=== PATIENT | male | born 1990 | race Hispanic/Latino ===

== ENCOUNTER 2017-03-14 17:50 | Emergency (ER) | payer OTHER ==
[~2017-03-14] VITALS: Ht 182.9 cm; Wt 90.9 kg
[2017-03-14 17:51] VITALS: BP 163/91
[2017-03-14] MEDS ORDERED: ALEV220C2 PO (17:56)
[2017-03-14] MEDS ORDERED: IBUP80TA PO (18:28)
[2017-03-14] MEDS ORDERED: CYCL10TA PO (18:28)
[2017-03-14] MEDS ORDERED: CYCLOBENZAPRINE 10 MG TAB PO ONE (18:30)
[2017-03-14] MEDS ORDERED: IBUPROFEN 600 MG TAB PO ONE (18:30)
== END 2017-03-14 18:47 | disposition home or self-care (01) ==
LOC: M ED 17:50
DX: S16.1XXA Strain of muscle, fascia and tendon at neck level, initial encounter (principal); V43.02XA Car driver injured in collision with other type car in nontraffic accident, initial encounter; Y92.481 Parking lot as the place of occurrence of the external cause; Y93.9 Activity, unspecified; Y99.9 Unspecified external cause status; I10 Essential (primary) hypertension; J45.909 Unspecified asthma, uncomplicated